=== PATIENT | male | born 1970 | race Caucasian/White ===

== ENCOUNTER 2024-10-24 22:56 | Emergency (ER) | payer MEDICAID, SELFPAY ==
[2024-10-24 22:58] VITALS: PULSE 114; RESP 18; O2SAT 96; BMI 26.6
--- NOTE | 2024-10-24 22:58 | PC.NURSE ---
First contact with pt in Room 6, pt changed into gown, connected to bedside front desk monitor, whiteboard updated, call light within reach.
[2024-10-24 23:06] VITALS: BP 128/84; PULSE 116; RESP 12; TEMP 37.3; O2SAT 100
--- NOTE | 2024-10-24 23:36 | PD.EDOVER ---
ED Overdose RME/HPI General Chief Complaint: Overdose Stated Complaint: OVERDOSE Time Seen by Provider: 10/24/24 22:58 Source: patient and EMS Arrival date/time: 10/24/24 22:56 Mode of arrival: ambulatory Limitations: no limitations RME / HPI RME / HPI Narrative: Dr. Carrillo?s Main ED Evaluation: This is a 53-year-old male who presents to the emergency department following an opioid overdose. The patient was brought in by ambulance after being found unresponsive at home. According to the EMS report, upon their arrival, the patient was unresponsive with a GCS of 3 and pinpoint pupils. A heroin pipe was noted next to the patient. EMS administered 4 mg of intranasal Narcan, and the patient quickly regained consciousness, returning to a GCS of 15 at the time of triage. Upon examination in the emergency department, the patient was somewhat unforthcoming with information. He reports not recalling events prior to becoming unresponsive but acknowledges playing baseball earlier in the day without issue. The patient denies any recent drug use. He refused further medical treatment but agreed to a 2-hour observation period due to the Narcan. Related Data Allergies Allergy/AdvReac Type Severity Reaction Status Date / Time aspirin Allergy Intermediate Hives Verified 10/24/24 23:38 Review of Systems Review of Systems Systems Reviewed: All systems reviewed, normal except as documented Past Medical History Past Medical History CARDIAC: Positive Cardiac Disorders and Angina; Negative Congestive Heart Failure RESPIRATORY: Negative Chronic Obstructive Pulmonary Disease (COPD) GENITOURINARY: Negative Renal Disease ENDOCRINE: Positive Diabetes Mellitus Type 2; Negative Diabetes Mellitus Type 1 Social History SMOKING STATUS: Never smoker ED Exam Narrative Physical exam: GENERAL APPEARANCE: AxOx4, generally well-appearing, no acute distress. HEENT: NC, AT. MMM. EOMI, clear conjunctiva, oropharynx clear. NECK: Supple without lymphadenopathy. No stiffness or restricted ROM. HEART: Normal rate and regular rhythm, normal S1/S1, no m/r/g LUNGS: CTAB, moving air well. No crackles or wheezes are heard. ABDOMEN: Soft, nontender, nondistended with good bowel sounds heard. BACK: No midline C/T/L spine pain or deformity, No CVAT, no obvious deformity. EXTREMITIES: Without cyanosis, clubbing or edema. MUSCULOSKELETAL: FROM of all major joints, no chest tenderness NEUROLOGICAL: Grossly nonfocal. Alert and oriented, moving all 4 extremities. CN not formally tested but appear grossly intact. Observed to ambulate with normal gait. Skin: Warm and dry without any rash. General Limitations: Present no limitations Course Quality Measures none Orders Category Date Time Status XR chest 1V Stat Exams 10/25/24 00:31 Taken Alcohol, Blood Medical Stat Lab 10/25/24 00:56 Completed CBC Stat Lab 10/25/24 00:56 Completed CMP [Comprehensive Metabolic Panel] Stat Lab 10/25/24 00:56 Completed Troponin I Stat Lab 10/25/24 00:56 Completed Acetaminophen Tab [Tylenol Tab] Med 10/25/24 00:23 Discontinued 650 mg PO X1 ONE Reevaluation(s) Reevaluation #1: Upon re-evaluation, the patient was agreeable to receiving morphine for pain management and consented to lab work. Time: 00:35 Vital Signs Vital signs: Vital Signs Temperature 99.2 F 10/24/24 23:06 Pulse Rate 116 H 10/24/24 23:06 Respiratory Rate 12 10/24/24 23:06 Blood Pressure 128/84 10/24/24 23:06 Pulse Oximetry (%) 100 10/24/24 23:06 Oxygen Delivery Method Room Air 10/24/24 23:06 Overdose MDM Narrative MDM Narrative:: 0210 This patient is choosing to leave against medical advice. I have personally explained to the patient that choosing to do so may result in permanent bodily harm or . I discussed at great length that without further evaluation and monitoring there may be unforeseen circumstances and deterioration causing permanent bodily harm or as a result of their choice. The patient is alert, oriented and competent at this time. The patient states that they are aware of the serious risks as explained, but they continue to wish to leave against medical advice. In light of their decision to leave AMA, follow-up has been arranged and they are aware of the importance of following up as instructed. They have been advised that they should return to the ED immediately if they change their mind at any time, or if their condition begins to change or worsen. Scribe Attestation: I, Cherry Healy, am scribing for and in the presence of Dr. Carrillo. Provider Notation: Although this document has been carefully reviewed, there may still be some phonetic and other typographical errors. These errors are purely grammatical due to imperfections in the software program and should not be construed in any way to compromise the substance of the patient's medical care during this visit. Patient data External records reviewed:: None Clinical information provided by:: patient Social determinants that could affect healthcare access:: substance use Patient has the following chronic illnesses:: As stated in past medical history How is presenting disease/condition affected by chronic disease/condition?: no chronic disease Evaluation data The following diagnostics were reviewed and interpreted by me:: lab results and radiology exam(s) Lab and/or radiology exams considered but not ordered:: None Interpretation Summary: Chest xray 1-view personally interpreted by me: no evidence of infiltrate, cardiomegaly, pleural effusion or bone abnormality. Medications / Prescriptions Medications or Prescriptions considered but not ordered:: n/a Medication administrations:: Medication Administration History Discontinued Medications Acetaminophen (Acetaminophen 325 Mg Tablet) 650 mg PO X1 ONE Stop: 10/25/24 00:24 Last Admin: 10/25/24 00:25 Dose: 650 mg Documented By: AC As above, if any Consultations Consultation(s) initiated? (list below): No Diagnosis Overdose Differential Diagnosis: other (opioid overdose, benzodiazepines overdose, alcohol intoxication, chest pain, acute GA, PE) Most likely diagnosis given after review of the tests above:: See clinical impression below Admission Indicated Admission indicated?: not indicated Admission Request Was there a request for admission?: No Disposition Plan Disposition Plan: other (specify) (AMA) Discharge Plan Plan Patient Disposition: Left Against Medical Advice Prescriptions/Referrals Referrals: No Primary/Family,Physician [Primary Care Provider] - In 1 week Problem List Clinical Impression: Drug overdose Patient/Caregiver Discharge Instructions Print Language: Mongolian
[2024-10-25] VITALS: BP 128/84; PULSE 124; RESP 17; TEMP 37.8; O2SAT 100
[2024-10-25 00:25] VITALS: TEMP 37.8
[2024-10-25] MEDS: ACETAMINOPHEN 325 MG TABLET 650 MG PO (00:25)
--- NOTE | 2024-10-25 00:31 | XR_ITS ---
Examination: AP chest single view Technique: AP portable semiupright chest single view Exam date and time: October 25, 2024 0035 hrs. Indications: Chest pain today Findings: Minor subsegmental atelectasis at the lung bases Normal heart size No lobar pneumonia or pulmonary edema Mild osteopenia Impression: Minor subsegmental atelectasis at the lung bases
[2024-10-25 01:10] LABS: Basophils % (Auto) 0 % (0-2.5); Eosinophils # (Auto) 0.1 Thou/mm3 (0.0-0.5); Eosinophils % (Auto) 1 % (0-10); Hematocrit 46.4 % (41.0-53.0); Immature Granulocytes % (Auto) 0 % (0-0); Immature Granulocytes Auto 0.02 Thou/mm3 (0.00-0.00); Lymphocytes # (Auto) 0.5 Thou/mm3 (1.0-4.8); Lymphocytes % (Auto) 5 % (10-50); Mean Corpuscular HGB Conc 34.5 g/dl (31.0-37.0); Mean Corpuscular Volume 87 fL (80-100); Monocytes # (Auto) 0.4 Thou/mm3 (0.0-0.8); Monocytes % (Auto) 4 % (0-12); Neutrophils # (Auto) 9.4 Thou/mm3 (1.8-7.7); Neutrophils % (Auto) 90 % (37-80); Nucleated Red Blood Cell % 0 /100 WBC (0); Platelet Count 281 Thou/mm3 (140-440); RDW Standard Deviation 41.5 fL (35.1-43.9); Red Blood Count 5.33 Miln/mm3 (4.50-5.90); White Blood Count 10.5 Thou/mm3 (3.8-10.6)
[2024-10-25 01:33] LABS: Alanine Aminotransferase 47 U/L (10-49); Albumin, Serum 4.5 gm/dL (3.5-5.0); Albumin/Globulin Ratio 1.6 (1.2-2.2); Alcohol, Blood Medical < 3.0 mg/dL (0-10.0); Alkaline Phosphatase 123 U/L (46-116); Anion Gap 7 (7-16); Aspartate Amino Transferase 24 U/L (0-34); BUN/Creatinine Ratio 13 Ratio (12-20); Bilirubin,Total 0.9 mg/dL (0.3-1.2); Blood Urea Nitrogen 16 mg/dL (9-23); Calcium 9.2 mg/dL (8.3-10.6); Calcium (Corrected) 9.2 mg/dL (8.5-10.1); Carbon Dioxide 27.6 mMol/L (20.0-31.0); Chloride 102 mMol/L (98-107); Creatinine (Component) 1.2 mg/dL (0.6-1.3); Estimated Creatinine Clearance 63.4 mL/min (>60); Globulin 2.8 gm/dL (2.3-3.5); Glucose 142 mg/dL (74-106); Osmolality,Calculated 277 (275-295); Potassium 4.1 mMol/L (3.4-5.1); Sodium 137 mMol/L (136-145); Total Protein 7.3 gm/dL (5.7-8.2); Troponin I < 0.020 ng/mL (0.0-0.045); eGFR > 60 See Note
[2024-10-25 02:00] VITALS: BP 117/81; PULSE 116; RESP 19; TEMP 37.3; O2SAT 100
== END 2024-10-25 02:12 | disposition left against medical advice (07) ==
LOC: SERX 10-25 00:53
PROVIDERS: Emergency Provider Emergency Medicine
DX: T40.2X1A Poisoning by other opioids, accidental (unintentional), initial encounter (principal); Z53.29 Procedure and treatment not carried out because of patient's decision for other reasons
CPT/HCPCS: 36415; 71045; 80053; 80307; 80320; 84484; 85025; 96127; 99283; A9270; G0480

== ENCOUNTER 2024-12-02 13:35 | Emergency (ER) | payer MEDICAID, SELFPAY ==
[2024-12-02 13:38] VITALS: BP 113/76; PULSE 99; RESP 20; TEMP 38; O2SAT 96
[2024-12-02 13:42] VITALS: BMI 26.9
[2024-12-02 14:04] VITALS: BP 115/83; PULSE 99; RESP 16; TEMP 37.8; O2SAT 95
--- NOTE | 2024-12-02 14:05 | EDNOTE_ITS ---
ED General RME/HPI General Chief complaint: General Adult/Misc Complain Stated complaint: GERNERAL ILLNESS Time Seen by Provider: 12/02/24 14:01 Arrival date/time: 12/02/24 13:35 CC: Body aches light sensitivity and nause HPI onset 24 hours ago other family members are ill with similar symptoms. Patient denies chest pain shortness of breath or difficulty breathing. Patient is awake and alert. Vital signs show that the patient is febrile. No other complaints patient is lying with his eyes covered with a wet washcloth. Patient states he took Advil yesterday with symptom relief but did not take any and the symptoms returned. Related Data Allergies Allergy/AdvReac Type Severity Reaction Status Date / Time aspirin Allergy Intermediate Hives Verified 12/02/24 13:42 Review of Systems Review of Systems Narrative Review of Systems: GEN: + fever, no chills, no weight loss EYES: No discharge, no visual changes, no pain HEENT: No ear pain, no congestion, no sore throat PULM: No shortness of breath, no cough, no congestion CV: No chest pain, no dyspnea on exertion, no palpitations GI: No nausea, no vomiting, no diarrhea, no pain, no constipation : No frequency, no urgency, no dysuria MUSC/SKEL: No joint pain, no back pain SKIN: No rash PSYCH: No hallucinations, no depression HEME/LYMPH: No easy bleeding or bruising tendencies NEURO: No weakness, no headache, +bodyaches Past Medical History Past Medical History CARDIAC: Positive Cardiac Disorders, Angina and Hypotension; Negative Congestive Heart Failure RESPIRATORY: Negative Chronic Obstructive Pulmonary Disease (COPD) GENITOURINARY: Negative Renal Disease ENDOCRINE: Positive Diabetes Mellitus Type 2; Negative Diabetes Mellitus Type 1 Social History SMOKING STATUS: Former smoker ED Exam Narrative Physical exam: [General: Appears in mild discomfort but not in any acute distress Head normocephalic HEENT: Eyes: Pupils are PERRLA EOMs are intact tracking without any complication mouth pink dry membranes uvula is midline swallow symmetrical phonation is normal. All other subsystems of HEENT are within acceptable limits Neck is supple nontender Chest equal chest rise nontender to palpation Respiratory: Clear to auscultation no wheezes crackles or rubs CV: Rate rhythm is regular no murmurs rubs or clicks Abdomen is soft nontender no masses positive bowel sounds all 4 quadrants Back: No CVA tenderness no spinous process tenderness from cervical spine thoracic and lumbar spine Skin: Intact no petechiae rash induration ulceration or crepitus Extremities: Moving all extremity against resistance cap refill less than 2 seconds neurosensory intact Neuro: Awake alert oriented x3 Glascow coma 15 no focal deficits] Course Quality Measures none Orders Category Date Time Status Bedside COVID-19 Antigen Test NOW Care 12/02/24 14:03 Active Bedside Influenza A&B Antigen Test NOW Care 12/02/24 14:04 Completed Saline [Insert IV] NOW Care 12/02/24 14:03 Active Ketorolac Inj [Toradol Inj] Med 12/02/24 14:03 Discontinued 15 mg IVP X1 ONE Ondansetron Inj [Zofran Inj] Med 12/02/24 14:03 Discontinued 4 mg IV X1 ONE Sodium Chloride 0.9% 1000 ml [Ns] 1,000 ml Med 12/02/24 14:04 Discontinued IV 999 mls/hr Vital Signs Vital signs: Vital Signs Temperature 100.4 F 12/02/24 13:38 Pulse Rate 99 12/02/24 13:38 Respiratory Rate 20 12/02/24 13:38 Blood Pressure 113/76 12/02/24 13:38 Pulse Oximetry (%) 96 12/02/24 13:38 Oxygen Delivery Method Room Air 12/02/24 13:38 [facility] Patient data External records reviewed:: [facility] previous records and EMS form Clinical information provided by:: patient and EMS Social determinants that could affect healthcare access:: none Patient has the following chronic illnesses:: None How is presenting disease/condition affected by chronic disease/condition?: uneffected by Evaluation data The following diagnostics were reviewed and interpreted by me:: lab results and radiology exam(s) Lab and/or radiology exams considered but not ordered:: Influenza A positive Interpretation Summary: Patient is influenza A no other acute finding. Patient has no other complaints Medications Medications considered but not ordered:: None Medication administrations:: Medication Administration History Discontinued Medications Sodium Chloride (Ns) 1,000 mls @ 999 mls/hr IV .Q1H1M ONE Stop: 12/02/24 15:04 Last Infusion: 12/02/24 15:23 Dose: Infused Documented By: Admin: 12/02/24 14:18 Dose: 999 mls/hr Documented By: DB Ketorolac Tromethamine (Ketorolac Inj 30 Mg/Ml Vial) 15 mg IVP X1 ONE Stop: 12/02/24 14:04 Last Admin: 12/02/24 14:24 Dose: 15 mg Documented By: DB Ondansetron HCl (Ondansetron Inj 2 Mg/Ml Inj 2 Ml) 4 mg IV X1 ONE; Protocol Stop: 12/02/24 14:04 Last Admin: 12/02/24 14:23 Dose: 4 mg Documented By: DB None Consultations Consultation(s) initiated? (list below): No Diagnosis Differential Diagnosis ED Complaint MDM: Influenza A dehydration electrolyte imbalance Most likely diagnosis given after review of the tests above:: Influenza A Admission Indicated Admission indicated?: not indicated Explain why admission is indicated or not indicated:: Stable for discharge Admission Request Was there a request for admission?: No Disposition Plan Disposition Plan: Discharge Discharge Attestation Discharge Attestation: The patient and all family members were given an opportunity to ask questions and understood the discharge instructions. Discharge instructions specifically effects, indications for sooner follow up or return to the emergency department, and the expected course of current diagnosis. Patient condition: Stable Medical Decision Making Differential Diagnosis Differential Diagnosis: Influenza A dehydration electrolyte imbalance Discharge Plan Plan Patient Disposition: HOME (Self Care) Patient condition on transfer: Stable Prescriptions/Referrals Referrals: Irving Moser MD [Physician] - In 1 week No Primary/Family,Physician [Primary Care Provider] - In 1 week Problem List Clinical Impression: Influenza A Patient/Caregiver Discharge Instructions Education Materials: ED Influenza (Adult) Print Language: Khmer Stand Alone Forms: Miriam Award Info., Work/School Release, Patient Portal Info Letter SHIRLEY/DC Supervising Physician TRISHA Supervising Physician: Destin Prado ENP
[2024-12-02] MEDS: SODIUM CHLORIDE 0.9% 1000 ML 1,000 ML 999 ML IV (14:18)
[2024-12-02] MEDS: ONDANSETRON INJ 2 MG/ML INJ 2 ML 4 MG IV (14:23)
[2024-12-02] MEDS: KETOROLAC INJ 30 MG/ML VIAL 15 MG IVP (14:24)
[2024-12-02 16:01] VITALS: BP 131/76; PULSE 91; RESP 16; TEMP 37; O2SAT 97
[2024-12-02 17:07] VITALS: BP 108/76; PULSE 91; RESP 18; TEMP 37.2; O2SAT 97
== END 2024-12-02 17:27 | disposition home or self-care (01) ==
PROVIDERS: Emergency Provider Emergency Medicine
DX: J10.1 Influenza due to other identified influenza virus with other respiratory manifestations (principal)
CPT/HCPCS: 87400; 87811; 96361; 96374; 96375; 99284; J1885; J2405; J7030